=== PATIENT | female | born 1930 | race Caucasian/White ===

== ENCOUNTER → 2016-06-01 | Outpatient (CLI) | payer MEDICARE ==
[~2016-06-01] MED LIST: AMOX400T12 PO; ASPI81TA55 PO; HYDR-3702 PO; ONDN4T PO; OXYC1TAB5 PO; SIMV20TA PO; VERA240T96 PO
[2016-06-01 12:18] LABS: BASOPHILS % (AUTO) 1 % (0-2); EOSINOPHILS # (AUTO) 0.1 10^3uL; EOSINOPHILS % (AUTO) 1 % (0-4); LYMPHOCYTES # (AUTO) 1.8 X10^3; MEAN CORPUSCULAR HEMOGLOBIN 31.3 PG (26.0-34.0); MEAN CORPUSCULAR VOLUME 95 FL (80-100); MONOCYTES # (AUTO) 0.7 X10^3; MONOCYTES % (AUTO) 10 % (3-11); NEUTROPHILS # (AUTO) 4.2 X10^3; NEUTROPHILS % (AUTO) 62 % (51-67); PLATELET COUNT 213 10^3uL (150-450); WHITE BLOOD COUNT 6.75 10^3uL (4.0-11.0)
[2016-06-01 12:58] LABS: ALBUMIN 4.3 g/dL (3.4-5.0); ANION GAP 13.6 MEQ/L (3-15); CALCULATED IONIZED CALCIUM 4.2 mg/dL (3.8-4.6); TOTAL PROTEIN 7.1 g/dL (6.4-8.5)
== END ==
LOC: LAB 12:00
PROVIDERS: ATTEND Internal Medicine
DX: Z00.00 Encounter for general adult medical examination without abnormal findings (principal); E78.4 Other hyperlipidemia; I10 Essential (primary) hypertension
CPT/HCPCS: 36415; 80053; 80061; 82306; 84443; 85025

== ENCOUNTER → 2016-08-31 | Outpatient (CLI) | payer MEDICARE ==
--- NOTE | 2016-08-31 10:07 | Diagnostic Imaging Report ---
EXAM: Right digital diagnostic mammography, with computer aided detection system (CAD). DATE: August 31, 2016. COMPARISON: August 27, 2015. August 06, 2014. August 01, 2013. INDICATION: History of left breast cancer status post mastectomy. FINDINGS: There are scattered fibroglandular densities. There are no suspicious findings in the right breast. IMPRESSION: 1. No mammographic evidence of malignancy in the right breast. Recommend annual screening mammography and clinical breast exam. ACR BI-RADS Category 2: Benign findings. Result letter will be mailed to the patient. Note: At least 10% of breast cancer is not imaged by mammography. Dictated by: Dictated on workstation # [id number]
--- NOTE | 2016-08-31 12:59 | Diagnostic Imaging Report ---
INDICATION: Postmenopausal, screening for osteoporosis. COMPARISON: 08/06/2014. DISCUSSION: The bone mineral density measurements of the lumbar spine and bilateral hips was performed on a [employer] DEXA scanner. The bone mineral density of the lumbar spine, L2 through L4, measures 1.200 g per centimeter squared which correlates to a T score of 0.0, normal. The interval increase in bone mineral density of the lumbar spine of 3.5% is not considered to be statistically significant. The bone mineral density of the left femoral neck measures 0.764 g per centimeters squared which correlates to a T score of -1.8, osteopenic. The interval increase in bone mineral density of the average bilateral hips of 2.1% is not considered to be statistically significant. The exam is considered osteopenic by World Health Organization guidelines. Recommend initiation of treatment. Recommend a 1 year followup DEXA scan. IMPRESSION: 1. Osteopenia with a moderate fracture risk. 2. No statistically significant interval change. Dictated by: Dictated on workstation # [id number]
== END ==
LOC: RAD 08:32
PROVIDERS: ATTEND Internal Medicine
DX: Z12.31 Encounter for screening mammogram for malignant neoplasm of breast (principal); Z90.12 Acquired absence of left breast and nipple; Z78.0 Asymptomatic menopausal state; M85.89 Other specified disorders of bone density and structure, multiple sites
CPT/HCPCS: 77080; G0202